=== PATIENT | female | born 1995 | race American Indian/Alaskan Native ===

== ENCOUNTER 2019-09-13 15:42 | Emergency (ER) | payer SELFPAY ==
--- NOTE | 2019-09-13 16:23 | Event Note ---
ED Screening Note Date of service: 09/13/19 Time: 16:20 ED Screening Note: This is a 24 y.o. F. that presents for wound evaluation. She had a I&D of pilonidal cyst on 08/30/2019. Follow up with PCP in [place] who did serial packing. Home from [place]. This initial assessment/diagnostic orders/clinical plan/treatment(s) is/are subject to change based on patients health status, clinical progression and re- assessment by fellow clinical providers in the ED. Further treatment and workup at subsequent clinical providers discretion. Patient/guardian urged not to elope from the ED as their condition may be serious if not clinically assessed and managed. Initial orders include: ACC for further evaluation
--- NOTE | 2019-09-13 19:06 | Emergency Department Report ---
- General Chief complaint: Skin/Abscess/Foreign Body Stated complaint: CYST Time Seen by Provider: 09/13/19 16:19 Source: patient Mode of arrival: Ambulatory Limitations: No Limitations - History of Present Illness Initial comments: Patient is a 24-year-old female presents emergency room with complaints of abscess packing removal. She states that on August 29 she had a pilonidal cyst and went to another emergency room at that time and had I&D performed and had packing placed. She states that she has been seeing her primary care physician and intermittently having it repacked. She states the last time she had it packed was September 09. She denies any drainage, fever, increasing swelling, nausea, vomiting, diarrhea, any symptoms. She states that it has significantly improved. She states that she completed a course of Keflex. She denies any past medical history or allergies to medications. She states that she is visiting from college and just needed to have it removed and reassessed. - Related Data Allergies Allergy/AdvReac Type Severity Reaction Status Date / Time No Known Allergies Allergy Unverified 09/13/19 15:48 Abscess Boil HPI - HPI Chief Complaint: Skin/Abscess/Foreign Body Stated Complaint: CYST Time Seen by Provider: 09/13/19 16:19 Allergies/Adverse Reactions: Allergies Allergy/AdvReac Type Severity Reaction Status Date / Time No Known Allergies Allergy Unverified 09/13/19 15:48 ED Review of Systems ROS: Stated complaint: CYST Other details as noted in HPI Comment: All other systems reviewed and negative ED Past Medical Hx - Past Medical History Previous Medical History?: No - Surgical History Past Surgical History?: No - Social History Smoking Status: Never Smoker Substance Use Type: Alcohol ED Physical Exam - General Limitations: No Limitations General appearance: alert, in no apparent distress - Head Head exam: Present: atraumatic, normocephalic - Eye Eye exam: Present: normal appearance - ENT ENT exam: Present: mucous membranes moist - Rectal Rectal exam: Present: other (very small opening 0.5 cm at the proximal end of the gluteal cleft, small amount of packing present, there is no edema, no fluctuance, no erythema, no induration, no drainage, appears to be healing well, no signs of infection, maintenance chief: MARIE rose) - Neurological Exam Neurological exam: Present: alert, oriented X3 - Psychiatric Psychiatric exam: Present: normal affect, normal mood - Skin Skin exam: Present: warm, dry ED Course Vital Signs 09/13/19 09/13/19 16:20 19:25 Temperature 98.7 F 98.2 F Pulse Rate 83 81 Respiratory 16 18 Rate Blood Pressure 116/79 Blood Pressure 112/72 [Left] O2 Sat by Pulse 100 98 Oximetry ED Medical Decision Making - Medical Decision Making Patient is a 24-year-old female presents emergency room with complaints of abscess packing removal. She states that on August 29 she had a pilonidal cyst and went to another emergency room at that time and had I&D performed and had packing placed. She states that she has been seeing her primary care physician and intermittently having it repacked. She states the last time she had it packed was September 09. She denies any drainage, fever, increasing swelling, nausea, vomiting, diarrhea, any symptoms. She states that it has significantly improved. She states that she completed a course of Keflex. She denies any past medical history or allergies to medications. She states that she is visiting from college and just needed to have it removed and reassessed. on exam: very small opening 0.5 cm at the proximal end of the gluteal cleft, small amount of packing present, there is no edema, no fluctuance, no erythema, no induration, no drainage, appears to be healing well, no signs of infection, maintenance chief: MARIE rose. Packing removed without any difficulty, there is no drainage, no drainage is able to be manually expressed, no signs of abscess or c ellulitis. Patient tolerated well. There is no bleeding. Advised patient to please keep area clean, dry, covered. May wash with soap and water and immediately dry. No hot tub, no pool, no bathtub, no soaking in water. Follow- up with your primary care doctor. Return to the emergency room immediately for any new or worsening symptoms or if symptoms began to come back. Critical care attestation.: If time is entered above; I have spent that time in minutes in the direct care of this critically ill patient, excluding procedure time. ED Disposition Clinical Impression: Abscess packing removal Disposition: DC-01 TO HOME OR SELFCARE Is pt being admited?: No Does the pt Need Aspirin: No Condition: Stable Instructions: Acute Wound Care (ED) Additional Instructions: please keep area clean, dry, covered. May wash with soap and water and immediately dry. No hot tub, no pool, no bathtub, no soaking in water. Follow- up with your primary care doctor. Return to the emergency room immediately for any new or worsening symptoms or if symptoms began to come back. Referrals: BRIJESH FLORES MD [Staff Physician] - 3-5 Days [facility] [Outside] - 3-5 Days Time of Disposition: 19:05 Print Language: UKRAINIAN
[2019-09-13 19:37] VITALS: BP 112/72
== END 2019-09-13 19:25 | disposition home or self-care (01) ==
LOC: ED 15:42
DX: L05.01 Pilonidal cyst with abscess (principal); Z48.01 Encounter for change or removal of surgical wound dressing
CPT/HCPCS: 99282